=== PATIENT | male | born 1990 | race Caucasian/White ===

== ENCOUNTER 2017-05-08 23:22 | Emergency (ER) | payer BC ==
[2017-05-08] MEDS ORDERED: predniSONE 20 MG TAB ONE (23:37)
== END 2017-05-08 23:49 | disposition home or self-care (01) ==
LOC: SCSER 23:22
DX: L25.9 Unspecified contact dermatitis, unspecified cause (principal); F17.210 Nicotine dependence, cigarettes, uncomplicated
CPT/HCPCS: 99282; J7506

== ENCOUNTER 2018-07-23 00:33 | Emergency (ER) | payer BC ==
[2018-07-23] MEDS ORDERED: Ketorolac Tromethamine 60 MG/2 ML VIAL ONE (01:04)
--- NOTE | 2018-07-23 08:36 | RAD ---
RIGHT FOOT 3 VIEWS: DATE: 07/23/2018. COMPARISON: None. HISTORY: Right foot pain, lateral ankle pain. FINDINGS: No displaced fracture or evidence of dislocation. No radiopaque foreign body or subcutaneous gas. T here is mid foot degenerative change with joint space narrowing and dorsal osteophytosis. IMPRESSION: No acute fracture or evidence of dislocation seen. POS: [facility]
== END 2018-07-23 01:32 | disposition home or self-care (01) ==
LOC: SCSER 00:33
DX: M25.571 Pain in right ankle and joints of right foot (principal); F17.210 Nicotine dependence, cigarettes, uncomplicated
CPT/HCPCS: 96372; J1885